=== PATIENT | female | born 1965 | race Caucasian/White ===

== ENCOUNTER → 2017-10-03 | Outpatient (CLI) | payer BC ==
--- NOTE | 2017-10-07 09:54 | MM ---
Reason for exam: screening (asymptomatic). Last mammogram was performed 8 years and 3 months ago. History: Patient is nulliparous. Physical Findings: A clinical breast exam by your physician is recommended on an annual basis and results should be correlated with mammographic findings. MG Screening Mammo w CAD Bilateral CC and MLO view(s) were taken. Prior study comparison: July 08, 2009, bilateral digital screening mammogram. April 23, 2008, bilateral digital screening mammogram. There are scattered fibroglandular densities. There is no discrete abnormality. No significant changes when compared with prior studies. ASSESSMENT: Negative, BI-RAD 1 RECOMMENDATION: Routine screening mammogram of both breasts in 1 year.
== END | disposition home or self-care (01) ==
LOC: RADMAMWWP 16:52
PROVIDERS: ATTEND Family Medicine
DX: Z12.31 Encounter for screening mammogram for malignant neoplasm of breast (principal)
CPT/HCPCS: 77067

== ENCOUNTER 2018-03-13 06:19 | Day surgery (SDC) | payer BC ==
[2018-03-11 12:38] VITALS: BMI 36.3
--- NOTE | 2018-03-12 18:53 | P.HPOB ---
History of Present Illness H&P Date: 03/12/18 Chief Complaint: Endometrial thickening, postmenopausal bleeding This is a 53-year-old female 0 who presents for dilation and curettage with hysteroscopy secondary to endometrial thickening and postmenopausal bleeding. She had her IUD removed after about 11 years in October 2017. She had her IUD removed in the beginning of October. She had a previous ultrasound prior to removal in September 2017 that showed endometrial thickening. She had a repeat ultrasound in February 2018 that showed of thickness of 9 mm. Previous thickness was 1.7 cm and the IUD was in place. She did bleed for about a week in October. Previous period was over a year prior to removal of the IUD. Ultrasound showed uterus measuring 5.1 x 3.2 x 3.9 cm. Right ovary was not visualized and left ovary appeared normal. Obstetrical history: G0. Gynecologic history: History of chlamydia treated years ago. Social history: She is on disability. She is . Review of Systems Constitutional: Denies chills, Denies fever Eyes: denies blurred vision, denies pain Ears, nose, mouth and throat: Denies headache, Denies sore throat Cardiovascular: Denies chest pain, Denies shortness of breath Respiratory: Denies cough Gastrointestinal: Denies abdominal pain, Denies diarrhea, Denies nausea, Denies vomiting Genitourinary: Reports abnormal vaginal bleeding Menstruation: Reports postmenopausal Musculoskeletal: Denies myalgias Integumentary: Denies pruritus, Denies rash Neurological: Denies numbness, Denies weakness Psychiatric: Denies anxiety, Denies depression Past Medical History Past Medical History: CVA/TIA, Hyperlipidemia, Memory Impairment, Thyroid Disorder Additional Past Medical History / Comment(s): 03/29 CVA, TIA 07/26, short term memory problems, worse some days more than others, chronic low back pain. History of Any Multi-Drug Resistant Organisms: None Reported Past Surgical History: No Surgical Hx Reported Past Anesthesia/Blood Transfusion Reactions: Unable to Obtain Additional Past Anesthesia/Blood Transfusion Reaction / Comment(s): Pt has never had general or spinal anesthesia. Past Psychological History: No Psychological Hx Reported Smoking Status: Current every day smoker Past Alcohol Use History: Rare Additional Past Alcohol Use History / Comment(s): Started smoking at age 12, 1 ppd. Past Drug Use History: None Reported - Past Family History Father Additional Family Medical History / Comment(s): Father of alcoholism at age 56 or 57yrs. Sister(s) Family Medical History: CVA/TIA Mother Family Medical History: Cancer Additional Family Medical History / Comment(s): Mother had lung cancer and of complications of lung cancer at age 53 yrs. Medications and Allergies Home Medications Medication Instructions Recorded Confirmed Type Aspirin 325 mg PO DAILY 03/11/18 03/11/18 History Atorvastatin [Lipitor] 40 mg PO QAM 03/11/18 03/11/18 History Levothyroxine Sodium [Synthroid] 100 mcg PO QAM 03/11/18 03/11/18 History Ramipril 2.5 mg PO QAM 03/11/18 03/11/18 History Allergies Allergy/AdvReac Type Severity Reaction Status Date / Time No Known Allergies Allergy Verified 03/11/18 12:15 Exam Osteopathic Statement: *. No significant issues noted on an osteopathic structural exam other than those noted in the History and Physical/Consult. HEENT: Within normal limits Heart: Regular rate and rhythm Lungs: Clear to auscultation bilaterally Abdomen: Soft, nontender Pelvic exam: Uterus is small, anteverted, nontender, with no adnexal masses or tenderness palpated. Extremities: Negative Homans Assessment and Plan (1) Postmenopausal bleeding Status: Acute Code(s): N95.0 - POSTMENOPAUSAL BLEEDING SNOMED Code(s): 74855974 (2) Endometrial thickening on ultrasound Status: Acute Code(s): R93.89 - ABNORMAL FINDINGS ON DX IMAGING OF OTH BODY STRUCTURES SNOMED Code(s): 572185244 Plan: Proceed with dilation and curettage with hysteroscopy. Medical clearance has been obtained from Dr. Iveth Melgar on 03/03/2018. I have discussed the risks, benefits, and alternative therapies for the above- mentioned procedure and for both sedation/anesthesia as well as necessary blood products administration, if indicated, as they pertain to this patient. The patient has indicated her understanding and acceptance of the risks and procedures discussed.
[~2018-03-13 06:19] MED LIST: Pre Op ABX Message 1 EACH MISC MISCELLANE ONE
[2018-03-13] MEDS ORDERED: ONDANSETRON 4 MG/2 ML VIAL IVP ONE (06:31)
[2018-03-13] MEDS ORDERED: DEXAMETHASONE SOD PHOSPHATE 10 MG/ML 1 ML VIAL IV ONE (06:31)
[2018-03-13] MEDS ORDERED: LIDOCAINE 1% 20 ML VIAL (10MG/ML) FOR IV START INTRADERMA PRN (06:31)
[2018-03-13] MEDS ORDERED: LACTATED RINGERS 1,000 ML IV SCH (06:45)
[2018-03-13] MEDS ORDERED: LIDOCAINE 1% 20 ML VIAL (10MG/ML) FOR IV START INTRADERMA ONE (07:12)
[2018-03-13] MEDS ORDERED: PROPOFOL 10 MG/ML 20 ML VIAL IV ONE (07:28)
[2018-03-13] MEDS ORDERED: GLYCOPYRROLATE 0.2 MG/ML 2 ML VIAL ONE (07:28)
[2018-03-13] MEDS ORDERED: LIDOCAINE 1% INJ 10MG/ML (20 ML MDV) ONE (07:28)
[2018-03-13] MEDS ORDERED: fentaNYL (PF) 50 MCG/ML 2 ML AMP ONE (07:28)
[2018-03-13] MEDS ORDERED: MIDAZOLAM 2 MG/2 ML VIAL ONE (07:28)
--- NOTE | 2018-03-13 07:56 | P.OP ---
Date of Procedure: 03/13/18 Preoperative Diagnosis: Postmenopausal bleeding Endometrial thickening Postoperative Diagnosis: Same Procedure(s) Performed: Dilation and curettage with hysteroscopy Anesthesia: other (Mask general) Surgeon: Cara Guerrero Estimated Blood Loss (ml): 5 Pathology: other (Endometrial curettings) Condition: stable Disposition: same day Indications for Procedure: This is a 53-year-old female 0 who presents for dilation and curettage with hysteroscopy secondary to endometrial thickening and postmenopausal bleeding. She had her IUD removed after about 11 years in October 2017. She had her IUD removed in the beginning of October. She had a previous ultrasound prior to removal in September 2017 that showed endometrial thickening. She had a repeat ultrasound in February 2018 that showed of thickness of 9 mm. Previous thickness was 1.7 cm and the IUD was in place. She did bleed for about a week in October. Previous period was over a year prior to removal of the IUD. Ultrasound showed uterus measuring 5.1 x 3.2 x 3.9 cm. Right ovary was not visualized and left ovary appeared normal. Operative Findings: Uterus is mid to retroverted and sounded to 6 m. No adnexal masses are palpated. Upon hysteroscopy, a relatively atrophic pattern was noted however there was a possible submucosal fibroid in the lower uterine segment on the right side. Both tubal ostia are visualized. Minimal endometrial curettings are obtained. Description of Procedure: The patient is taken to the operating room where she is placed in the dorsal lithotomy position. She is prepped and draped in the normal sterile fashion. Bladder is drained with a catheter. Examination is performed under anesthesia. Uterus is found to be mid to retroverted position. Next a weighted speculum was placed in the patient's vagina and a right angle retractor was used to visualize the cervix. The anterior lip of the cervix is grasped with a single- tooth tenaculum. Cervix is gently dilated with Dillon dilator and then sounded to 6 cm. Cervix is then dilated further with Dillon dilators until a hysteroscope could be passed. Hysteroscopy was performed using normal saline. The above noted findings are made and pictures are taken. Next the hysteroscope was withdrawn and the cervix is gently dilated further. A polyp forceps was introduced with minimal polypoid type tissue obtained. Next the medium-size sharp curet was introduced and sharp curettage was performed with minimal further tissue obtained. Next the single-tooth tenaculum was removed. No bleeding was noted. All other incisions are removed from the vagina. All sponge and needle counts are correct. Patient is then taken to recovery room in stable condition.
[2018-03-13 08:13] VITALS: TEMP 97.5
[2018-03-13 08:33] VITALS: RESP 16
[2018-03-13 09:22] VITALS: BP 133/83; PULSE 54
== END 2018-03-13 09:58 | disposition home or self-care (01) ==
LOC: OR 06:19 → EDSTATUS 07:30 → OR 09:58
PROVIDERS: ATTEND Obstetrics & Gynecology
DX: N84.0 Polyp of corpus uteri (principal); N85.4 Malposition of uterus; R93.89 Abnormal findings on diagnostic imaging of other specified body structures; E78.5 Hyperlipidemia, unspecified; R41.3 Other amnesia; E07.9 Disorder of thyroid, unspecified; M54.5 Low back pain; G89.29 Other chronic pain; I10 Essential (primary) hypertension; F17.210 Nicotine dependence, cigarettes, uncomplicated; Z79.82 Long term (current) use of aspirin; Z79.890 Hormone replacement therapy; Z79.899 Other long term (current) drug therapy; Z86.73 Personal history of transient ischemic attack (TIA), and cerebral infarction without residual deficits
CPT/HCPCS: 81025; 88305; 58558; J2250; J1100; J2405; J2001; J3010; J2704

== ENCOUNTER → 2023-06-13 | Outpatient (CLI) | payer BC ==
[2023-06-13 19:00] LABS: Basophils # (A) 0.08 X 10*3/uL (0.00-0.10); Basophils % (A) 0.7 %; Eosinophils # (A) 0.18 X 10*3/uL (0.04-0.35); Eosinophils % (A) 1.6 %; HGB 14.6 g/dL (12.0-15.0); Lymphocytes # (A) 3.53 X 10*3/uL (0.90-5.00); Lymphocytes % (A) 31.5 %; MCH 30.2 pg (27.0-32.0); MCHC 31.7 g/dL (32.0-37.0); MCV 95.2 FL (80.0-97.0); Mean Platelet Volume 9.9 FL (9.5-12.2); Monocytes # (A) 0.68 X 10*3/uL (0.20-1.00); Monocytes % (A) 6.1 %; NRBC Per 100 WBC 0 X 10*3/uL (0.00-0.01); Neutrophils # (A) 6.69 X 10*3/uL (1.80-7.70); Neutrophils % (A) 59.7 %; Platelet Count 379 X 10*3/uL (140-440); RBC 4.83 X 10*6/uL (4.10-5.20); RDW 13.7 % (11.5-14.5)
[2023-06-13 19:08] LABS: Blood Urea Nitrogen 12.7 mg/dL (9.0-27.0); Chloride 106 mmol/L (96-109); Glucose 91 mg/dL (70-110); Potassium 4.3 mmol/L (3.5-5.5); Sodium 143 mmol/L (135-145)
[2023-06-13 19:09] LABS: Calcium 9.5 mg/dL (8.7-10.3); Carbon Dioxide 24.2 mmol/L (21.6-31.8)
[2023-06-13 19:34] LABS: Appearance,Urine Turbid (Clear); Bilirubin,Urine Negative (Negative); Blood,Urine Negative (Negative); Color,Urine Yellow (Yellow); Ketones,Urine Negative (Negative); Nitrite,Urine Negative (Negative); PH, Urine 5.5; Specific Gravity,Urine 1.027 (1.001-1.030)
[2023-06-13 19:43] LABS: Bacteria,Urine 3+ (None Seen)
== END | disposition home or self-care (01) ==
LOC: LABPRL 15:08
PROVIDERS: ATTEND Orthopaedic Surgery Orthopaedic Surgery of the Spine
DX: Z01.812 Encounter for preprocedural laboratory examination (principal)
CPT/HCPCS: 80048; 81001; 85025; 86850; 86900; 86901; 87070

== ENCOUNTER 2023-06-19 09:36 | Observation (INO) | payer BC ==
[~2023-06-19 09:36] MED LIST changes: +HYDROmorphone 0.5 MG/0.5 ML SYRINGE IVP PRN; -Pre Op ABX Message 1 EACH MISC MISCELLANE ONE
[2023-06-19] MEDS: LACTATED RINGERS 1,000 ML IV ONE ×3 (09:50→13:33)
[2023-06-19] MEDS: ONDANSETRON 4 MG/2 ML VIAL IVP ONE (10:41)
[2023-06-19] MEDS ORDERED: MIDAZOLAM 2 MG/2 ML VIAL ONE (11:14)
[2023-06-19] MEDS ORDERED: NEOSTIGMINE 1 MG/ML 10 ML VIAL ONE (11:14)
[2023-06-19] MEDS ORDERED: PROPOFOL 10 MG/ML 20 ML VIAL IV ONE (11:14)
[2023-06-19] MEDS ORDERED: HYDROmorphone (PF) 1 MG/ML ONE (11:14)
[2023-06-19] MEDS ORDERED: TRANEXAMIC 1,000 MG/100ML-NACL PREMIX BAG ONE (11:14)
[2023-06-19] MEDS ORDERED: SUCCINYLCHOLINE CHLORIDE 200 MG/10 ML VIAL IV ONE (11:14)
[2023-06-19] MEDS ORDERED: ePHEDrine 50 MG/ML 1 ML VIAL ONE (11:14)
[2023-06-19] MEDS ORDERED: LIDOCAINE 1% INJ 10MG/ML (20 ML MDV) ONE (11:14)
[2023-06-19] MEDS ORDERED: fentaNYL (PF) 50 MCG/ML 2 ML AMP ONE (11:14)
[2023-06-19] MEDS ORDERED: PHENYLEPHRINE 10 MG/ML VIAL ONE (11:14)
[2023-06-19] MEDS ORDERED: FUROSEMIDE 10 MG/ML 2 ML VIAL ONE (11:14)
[2023-06-19] MEDS ORDERED: PHENYLEPHRINE-0.9% NACL SYG 1,000 MCG/10 ML SYRINGE ONE (11:14)
[2023-06-19] MEDS ORDERED: KETAMINE HCL IN 0.9 % NACL 50 MG/5 ML SYRINGE ONE (11:14)
[2023-06-19] MEDS ORDERED: GLYCOPYRROLATE 0.2 MG/ML 2 ML VIAL ONE (11:14)
[2023-06-19] MEDS ORDERED: ROCURONIUM 10 MG/ML (5 ML VIAL) IV ONE (11:14)
[2023-06-19] MEDS: ceFAZolin 1,000 MG in SODIUM CHLORIDE 0.9% IRRIGATIO 1,000 ML IRRIGATION PRN ×2 (11:19→13:15)
[2023-06-19] MEDS: THROMBIN (BOVINE) 5,000 UNIT VIAL TOPICAL ONE (12:02)
[2023-06-19] MEDS: LIDOCAINE 2%-EPI 1:100,000 20 ML VIAL SQ ONE ×2 (12:02→12:08)
[2023-06-19] MEDS: BUPIVACAINE (PF) 0.5% 30 ML VIAL SQ ONE ×2 (12:08)
[2023-06-19] MEDS ORDERED: TRANEXAMIC 1,000 MG/100ML-NACL 1,000 MG in SALINE 1 100ML.BAG IVPB PRN (12:18)
--- NOTE | 2023-06-19 16:06 | FL ---
EXAMINATION TYPE: FL guidance operating room, XR lumbar spine 2 or 3V Intraoperative/procedural fluor oscopic services were provided. Total fluoroscopy time is 17 seconds with a total of 5 submitted imag es to PACS. Please see the operative/procedural note for further details. DAP: 52.217 Gycm2
[2023-06-19] MEDS ORDERED: ONDANSETRON 4 MG/2 ML VIAL IVP PRN (16:08)
[2023-06-19] MEDS ORDERED: SENNOSIDES-DOCUSATE SODIUM 1 EACH TAB PO PRN (16:08)
[2023-06-19] MEDS ORDERED: HYDROmorphone 1 MG/ML 1 ML SYRINGE IVP PRN (16:08)
[2023-06-19] MEDS ORDERED: BENZOCAINE/MENTHOL LOZENG 1 EACH LOZENGE MUCOUS MEM PRN (16:08)
[2023-06-19] MEDS ORDERED: HYDROmorphone 0.5 MG/0.5 ML SYRINGE IVP PRN (16:08)
--- NOTE | 2023-06-19 16:17 | P.OP ---
Date of Procedure: 06/19/23 Preoperative Diagnosis: Spinal stenosis L3-4 L4-5 L5-S1, lower extremity radiculopathy,, degenerative disc disease, herniated nucleus pulposus L3-4 L4-5 L5-S1, low back pain, facet arthrosis Postoperative Diagnosis: Same Anesthesia: GETA Pathology: none sent Condition: stable Disposition: PACU Description of Procedure: DESCRIPTION OF PROCEDURE(S): BRIEF OPERATIVE NOTE Preoperative Diagnosis: Spinal stenosis L3-4 L4-5 L5-S1, lower extremity radiculopathy,, degenerative disc disease, herniated nucleus pulposus L3-4 L4-5 L5-S1, low back pain, facet arthrosis, degenerative scoliosis Postoperative Diagnosis: Same Procedure: Laminectomy and decompression L3-4 L4-5 L5-S1 bilaterally with foraminotomy Computer CT navigation aided Minimally invasive Posterior lateral decompression and facet fusion L3-4 L4-5 L5-S1 Minimally invasive Transforaminal lumbar interbody fusion for a 360 fusion L3-4 L4-5 L5-S1 Discectomy for decompression L3-4 L4-5 L5-S1 beyond that preparation for fusion Placement of interbody graft L3-4 L4-5 L5-S1 Use of computer navigation for fusion Local autogenous bone grafting Aspiration of bone marrow from the vertebral body pedicle of L3 on the right Use of bone graft extenders Surgeon: Dr. Crocker [facility] Worker: Javan KNAPP who is present throughout the entire the case persistence during positioning, dissection, exposure, visualization, and all crucial elements of the case as well as closure. Anesthesia: General anesthesia Estimated blood loss: Approximately 500 mL, with 250 given back through Cell Saver Complications: None apparent Components implanted: K2M Aleksandr minimally invasive [place] pedicle screw system withscrews measuring 6.5 mm in diameter to rods one [place] interbody cage and 2 peek interbody cages with 10 mL of osteo amp bio4 bone graft substitute and 30 mL of the BX bone fibers to supplement the local autogenous bone graft and bone marrow aspirate Disposition: To recovery room in good stable condition. OPERATIVE INDICATIONS The patient has had severe issues at their lower extremity in her lower back over the past several years with significant worsening over the past several months. Over the past few months the patient had pain at their back and their lower extremities. The patient is having severe radicular symptoms at their lower extremity with weakness. The patient is having significant pain in their back. They are unable to obtain any comfort. We did aggressive conservative treatment with medications therapy and interventional pain management however thery were not having any relief. The patient and degenerative scoliosis and evidence of significant stenosis at multiple levels with disc herniation particularly at L3-4 L4-5 L5-S1. These correlated well with her low back and lower extremity symptoms. The patient has been through conservative treatment. We discussed various treatment options including surgery, and the patient wishes to proceed with surgery We discussed the risk, patient's alternatives and benefits of surgery including but not limited to, risk of bleeding risk of infection, risk of need for further surgery, risk of decreased, loss of motion, muscle function, malunion nonunion, hardware failure, nerve damage, paralysis, heart attack, blindness and . They understood issues with the current pandemic and the possibility of exposure. OPERATIVE SUMMARY After discussing all the risks, patient alternatives and benefits at length, the patient elected to proceed with surgical intervention, signed informed consent, and presented for their procedure. The patient was seen and examined in the ct eoperative holding area and the surgical site was marked. The patient was given antibiotics and brought to the operating room. The patient was sedated and intubated by anesthesia in standard fashion. The patient was positioned on to the operating room table in a prone position on the appropriate frame which was well-padded and well molded. We were careful to pad any bony prominences and pressure points. We were careful to maintain the patient's cervical spine and good neutral alignment and position throughout. The patient was prepped and draped in a normal standard fashion. An appropriate timeout and keystone protocol performed. We were able to proceed with the surgery. The local wound area was infiltrated with local anesthetic. Over the right iliac crest I was able to make small stab incisions and establish a guidepin screw fixation to the iliac crest 2. I was able place the computer referencing device over the guidepins to establish an appropriate reference point for the Ziem CT navigation. We then were able to place patient in an appropriate drape and do a navigation spin for visualization and 3-D reconstruction of the lumbar spine. I was able utilize C-arm guidance and navigation to establish appropriate position over the pedicles bilaterally at the appropriate levels from L3-S1. With the appropriate levels confirmed was able to make small incisions over the appropriate pedicle sites bilaterally. Utilizing the computer navigation device I was able to establish bony landmarks at the right iliac crest for a bony reference point for the navigation device. I was able to establish a Jamshidi needle over the lateral aspect of the pedicle and advanced the trocar into the pedicle being careful not to breech superiorly inferiorly medially or laterally using computer navigation device. Position was confirmed regularly with AP and lateral images on C-arm and with the computer navigation device at the appropriate levels bilaterally. I was able to establi sh the trocar into the pedicle appropriately into the posterior aspect of the vertebral body bilaterally at the appropriate levels. This was done at each of the pedicle positions and each of the vertebrae. At the superior vertebrae I was able to take approximately 15 mL of bone aspiration for use later in the case to supplement the allograft and autograft bone. I was able place the guidewire into the trocar and into the vertebral body appropriately under C-arm guidance. Dissection was taken down over the wire to the appropriate starting position for the screw placed. The appropriate length screw was chosen, threaded over the guidewire and screwed appropriately into the pedicle and vertebral body under C-arm guidance in excellent alignment and position with good bony purchase. This is done at each of the screw sites at the appropriate levels at L3-L4-L5 and S1 bilaterally. With the screws intact I extended the incision to connect the screw hole sites on the most symptomatic side on the left. I dissected down to establish access over the pars and lamina to the base of the spinous process. I was able to expose the facet joint. The capsule the facet was taken down and showed some facet arthrosis at the joint. I was able to use a combination of curettes and Kerrison rongeurs and a high-speed drill to take down the facet joint and do a facetectomy. I was able get excellent foraminal decompression and central decompression with undermining across midline to perform a laminectomy centrally and contralaterally. I was able get good central decompression bilaterally at e ach level. The ligamentum flavum was taken down to further decompress centrally and at bilateral neural foramen. I was able to expose the disc space and visualize the traversing nerve root. Note was made of distinct disc herniation that was abutting the traversing nerve root at the level causing further compression of the nerve root at each level with particular herniation and extruded fragment at L3-4 and L5-S1.. I was able to establish a annulotomy at the appropriate level protecting soft tissue and neural structures. Note was made of some disc desiccation at the disc. I performed a complete discectomy with accommodation of curettes and rasps and scrapers. I was able get good endplate preparation at the disc space. I sized for the appropriate size interbody spacer protecting the soft tissue and neural structures. The wound was copiously irrigated and suctioned dry. There is no evidence of any dural tear or leak. I was able to pack the disc space with local autogenous bone graft as well as a small amount of bone graft which was also placed into the interbody cage itself. Protecting the soft tissue structures and neural structures I was able place the interbody cage in good alignment and good position with good fit and fill at the interbody space. Position was confirmed with C-arm guidance. Good hemostasis maintained. There is no evidence of any dural tear or leak. The wound was irrigated and suctioned dry. With the hardware intact, from L3-S1 intraoperative C-arm imaging was again taken which showed good alignment and position of the hardware at the appropr iate levels. We were then able to measure, contour into good lordosis and place the rods and appropriate hardware bilaterally. I was able to place capcrews, tighten them down, and torque them with the torque screwdriver appropriately. With this intact I was able to place the local autogenous bone graft with additional bone graft enhancer as necessary into the posterior lateral gutters over the decorticated transverse processes and facet joints on the contralateral side. The remainder of the bone graft was placed over the facet joint on the contralateral side after taking down the facet joint capsule. With the bone graft intact, a stable construct, and good decompression at the appropriate levels, we were able to proceed with closure. Good hemostasis was maintained. There is no evidence of dural tear or leak. The fascia was closed for a watertight closure. he subcuticular tissue was closed with absorbable suture. The wound was cleaned and dried and dressed with the appropriate dressing. The drapes were broken down. The patient was gently rolled back onto their hospital bed being careful to maintain their cervical spine and good neutral alignment and position. They were woken up by anesthesia, extubated, and brought to the recovery room in good stable condition. The patient will be admitted to the hospital for appropriate postoperative care, medical management and monitoring. We will continue to follow them closely about the postoperative course.
[2023-06-19] MEDS: DEXAMETHASONE SOD PHOSPHATE 4 MG/ML 1 ML VIAL IV ONE (17:53)
[2023-06-19] MEDS: LACTATED RINGERS 1,000 ML IV SCH (17:53)
[2023-06-19] MEDS: ceFAZolin 3 GM in SODIUM CHLORIDE 0.9% 100 ML IVPB SCH (18:08)
[2023-06-19] MEDS: SODIUM CHLORIDE 0.9% 1,000 ML IV SCH (18:13)
[2023-06-19] MEDS: CYCLOBENZAPRINE 10 MG TAB PO PRN (20:07)
[2023-06-19] MEDS: NYSTATIN 100,000 UNIT/GM OINT 30 GM TUBE TOPICAL SCH (22:45)
[2023-06-19] MEDS: HYDROcodone/APAP 5-325MG 1 EACH TAB PO PRN (22:48)
[2023-06-20] MEDS: SENNOSIDES-DOCUSATE SODIUM 1 EACH TAB PO SCH (07:51)
--- NOTE | 2023-06-20 08:44 | P.PN ---
Progress Note - Text Progress Note Date: 06/20/23 Postoperative day #1 Patient is seen and examined today at bedside. The patient has some pain around the surgical site as expected. Pain is being controlled with medication. She denies any nausea or vomiting. She has not had anything to eat yet this morning. The Smalls is intact and she has not yet been out of bed Physical Exam Afebrile with stable vital signs Abdomen is soft nontender. Chest has good excursion deep and space expiration The incision site is clean dry and intact. No erythema there is no purulence. Extremities have not had neurologic change from prior to surgery. She has sustained dorsiflexion plantarflexion EHL intact to the bilateral lower extremities she is able to lift her legs up off the bed Calves and thighs were soft nontender without evidence of DVT. Assessment/Plan Postoperative day #1 status post minimally invasive decompression fusion L3-4 L4-5 L5-S1 for her spinal stenosis with degenerative disc disease and degenerative scoliosis and lower extremity radiculopathy Patient is progressing as expected from the surgery. She feels it is a bit more painful than she expected but medication is managing adequately. Therapy is at bedside now and they are going to work to get her up out of bed this morning. We will continue to increase the patient's mobilization with therapy. We will continue pain control with oral or IV medications. We'll continue to follow patient closely.
[2023-06-20 08:46] LABS: Basophils # (A) 0.04 X 10*3/uL (0.00-0.10); Basophils % (A) 0.3 %; Eosinophils # (A) 0.05 X 10*3/uL (0.04-0.35); Eosinophils % (A) 0.4 %; HCT 37.3 % (37.2-46.3); HGB 11.8 g/dL (12.0-15.0); Lymphocytes # (A) 2.03 X 10*3/uL (0.90-5.00); Lymphocytes % (A) 14.8 %; MCH 29.6 pg (27.0-32.0); MCHC 31.6 g/dL (32.0-37.0); MCV 93.7 FL (80.0-97.0); Mean Platelet Volume 9.6 FL (9.5-12.2); Monocytes # (A) 0.83 X 10*3/uL (0.20-1.00); Monocytes % (A) 6.1 %; NRBC Per 100 WBC 0 X 10*3/uL (0.00-0.01); Neutrophils # (A) 10.71 X 10*3/uL (1.80-7.70); Neutrophils % (A) 78.1 %; Platelet Count 287 X 10*3/uL (140-440); RBC 3.98 X 10*6/uL (4.10-5.20)
[2023-06-20 09:03] LABS: Blood Urea Nitrogen 11.9 mg/dL (9.0-27.0); Calcium 8.3 mg/dL (8.7-10.3); Carbon Dioxide 23.3 mmol/L (21.6-31.8); Chloride 108 mmol/L (96-109); Glucose 123 mg/dL (70-110); Potassium 4.5 mmol/L (3.5-5.5); Sodium 140 mmol/L (135-145)
[2023-06-20] MEDS: LEVOTHYROXINE 100 MCG TAB PO SCH (16:50)
[2023-06-20] MEDS: PANTOPRAZOLE 40 MG/10 ML VIAL IVP SCH (16:51)
--- NOTE | 2023-06-20 18:39 | P.CONS ---
History of Present Illness - History of Present Illness This is a 58-year-old female with past medical history significant for CVA, T IA, memory impairment, hyperlipidemia, hypertension, hypothyroidism, ongoing nicotine dependence ,chronic low back pain, spinal stenosis L3-4, L4-5, L5-S1 with lower extremity radiculopathy, degenerative disc disease, herniated nucleus pulposus L3-4, L4-5, L5-S1, status post decompression fusion.tolerated procedure well. Denies history of diabetes mellitus. sitting up in chair, positive pain. Nausea and vomiting yesterday, subsided. Passing flatus. Denies chest pain, palpitations or shortness of breath. Smalls present. Denies chest pain, palpitations or shortness of breath. Maintaining O2 sats in the mid 90s on 2 L nasal cannula. Afebrile, WBC 13.7, hemoglobin 11.8, platelets 287. Bicarb 23.3, BUN 11.9, creatinine 1. Electrolytes within normal limits. Maintained on IV fluid hydration, blood pressures soft. Review of Systems ROS Statement: Those systems with pertinent positive or pertinent negative responses have been documented in the HPI. ROS Other: All systems not noted in ROS Statement are negative. Past Medical History Past Medical History: CVA/TIA, Hyperlipidemia, Memory Impairment, Thyroid Disorder Additional Past Medical History / Comment(s): 03/29 CVA, TIA 07/26, short term memory problems, worse some days more than others, chronic low back pain. History of Any Multi-Drug Resistant Organisms: None Reported Past Surgical History: No Surgical Hx Reported Past Anesthesia/Blood Transfusion Reactions: Unable to Obtain Additional Past Anesthesia/Blood Transfusion Reaction / Comm: Pt has never had general or spinal anesthesia. Past Psychological History: No Psychological Hx Reported Additional Psychological History / Comment(s): Pt resides with her spouse. She is independent. She uses no assistive device. She drives. Smoking Status: Current every day smoker Past Alcohol Use History: Rare Additional Past Alcohol Use History / Comment(s): Started smoking at age 12, 1 ppd. Past Drug Use History: None Reported - Past Family History Father Additional Family Medical History / Comment(s): Father of alcoholism at age 56 or 57yrs. Sister(s) Family Medical History: CVA/TIA Mother Family Medical History: Cancer Additional Family Medical History / Comment(s): Mother had lung cancer and of complications of lung cancer at age 53 yrs. Medications and Allergies Home Medications Medication Instructions Recorded Confirmed Type Aspirin 325 mg PO DAILY 03/11/18 06/19/23 History Atorvastatin [Lipitor] 40 mg PO QAM 03/11/18 06/19/23 History Levothyroxine Sodium [Synthroid] 100 mcg PO QAM 03/11/18 06/19/23 History ramipriL [Ramipril] 2.5 mg PO QAM 03/11/18 06/19/23 History Fluticasone/Umeclidin/Vilanter 1 dose INHALATION DIRECTED 06/14/23 06/19/23 History [Trelegy Ellipta 100-62.5-25] Ibuprofen [Motrin] 800 mg PO Q8H 06/14/23 06/19/23 History Allergies Allergy/AdvReac Type Severity Reaction Status Date / Time No Known Allergies Allergy Verified 06/19/23 10:14 Physical Exam Vitals: Vital Signs Temp Pulse Pulse Resp BP Pulse Ox 06/20/23 13:29 99.5 F 88 18 103/71 91 L 06/20/23 07:24 98.4 F 96 18 106/71 95 06/20/23 02:00 85 17 109/76 97 06/19/23 19:59 97.6 F 86 15 122/79 94 L 06/19/23 18:51 81 84 19 06/19/23 17:40 97.2 F L 84 19 118/81 91 L 06/19/23 17:19 81 16 126/71 92 L 06/19/23 17:04 99 16 132/76 94 L 06/19/23 16:49 80 16 125/80 96 06/19/23 16:34 80 16 132/80 94 L 06/19/23 16:19 97.2 F L 86 14 130/74 97 Intake and Output 06/20/23 06/20/23 06/20/23 06:59 14:59 22:59 Output Total 500 200 Balance -500 -200 Output: Urine 500 200 Uretheral (Smalls) 200 Other: Voiding Method Indwelling Catheter # Voids 3 Gen: well developed, female in NAD HEENT: NC/AT, mmm Neck: supple, no JVD or thyromegaly CV: regular rhythm, no murmur Lungs: normal effort, clear throughout Abd: soft, nontender, non distended Skin: warm and dry Results CBC & Chem 7: 06/20/23 03:24 06/20/23 03:24 Labs: Abnormal Lab Results - Last 24 Hours (Table) 06/20/23 06/20/23 Range/Units 03:24 03:24 WBC 13.70 H (4.50-10.00) X 10*3/uL RBC 3.98 L (4.10-5.20) X 10*6/uL Hgb 11.8 L (12.0-15.0) g/dL MCHC 31.6 L (32.0-37.0) g/dL Neutrophils # 10.71 H (1.80-7.70) X 10*3/uL BUN/Creatinine Ratio 11.90 L (12.00-20.00) Ratio Glucose 123 H (70-110) mg/dL Calcium 8.3 L (8.7-10.3) mg/dL Assessment and Plan Assessment: Chronic low back pain, spinal stenosis L3-4, L4-5, L5-S1 with lower extremity radiculopathy, degenerative disc disease, herniated nucleus pulposus L3-4, L4-5, L5-S1, status post decompression fusion. History of CVA-right MCA, TIA with memory impairment Hyperlipidemia Hypothyroidism Nicotine dependence Morbid obesity, BMI 41 Plan: Continue on current medication regimen ,monitoring and symptomatic treatment. Aggressive pulmonary toileting with incentive spirometer reinforced. Smoking sensation reinforced. PPI ordered for GI prophylaxis. Pain management and DVT prophylaxis as per orthopedic spine. PT/OT. Home meds have been reviewed and resumed accordingly. Hemoglobin A1c ordered. Thank you for the consult. The impression and plan of care has been dictated as directed. : I performed a history and examination of this patient, discussed the same with the dictator. I agree with the dictator's note ,documented as a scribe. Any additional findings or plans will be noted.
[2023-06-20] MEDS: SYMBICORT 80-4.5 MCG INHALER INHALATION SCH (21:25)
[2023-06-20] MEDS: IPRATROPIUM 0.5 MG/2.5 ML NEBU INHALATION SCH (21:26)
[2023-06-21 10:42] LABS: Basophils # (A) 0.05 X 10*3/uL (0.00-0.10); Basophils % (A) 0.3 %; Eosinophils # (A) 0.07 X 10*3/uL (0.04-0.35); Eosinophils % (A) 0.4 %; HCT 35.8 % (37.2-46.3); HGB 11.8 g/dL (12.0-15.0); Lymphocytes # (A) 1.88 X 10*3/uL (0.90-5.00); Lymphocytes % (A) 11.8 %; MCH 31.5 pg (27.0-32.0); MCV 95.5 FL (80.0-97.0); Mean Platelet Volume 10.3 FL (9.5-12.2); Monocytes # (A) 1.34 X 10*3/uL (0.20-1.00); Monocytes % (A) 8.4 %; NRBC Per 100 WBC 0 X 10*3/uL (0.00-0.01); Neutrophils # (A) 12.46 X 10*3/uL (1.80-7.70); Neutrophils % (A) 78.5 %; Platelet Count 260 X 10*3/uL (140-440); RBC 3.75 X 10*6/uL (4.10-5.20); RDW 14.2 % (11.5-14.5); WBC 15.89 X 10*3/uL (4.50-10.00)
[2023-06-21 11:03] LABS: Calcium 8.2 mg/dL (8.7-10.3); Chloride 104 mmol/L (96-109); Glucose 112 mg/dL (70-110); Potassium 3.9 mmol/L (3.5-5.5); Sodium 138 mmol/L (135-145)
[2023-06-21] MEDS ORDERED: DEXTROSE 50% SYRINGE 50 ML IVP PRN ×2 (11:06)
--- NOTE | 2023-06-21 11:14 | P.PN ---
Subjective Progress Note Date: 06/21/23 Principal diagnosis: Lumbar stenosis. Status post minimally invasive decompression fusion L3-4 L4-5 L5-S1 for her spinal stenosis with degenerative disc disease and degenerative scoliosis and lower extremity radiculopathy. This is a 58-year-old female who is postop day #2 Status post minimally invasive decompression fusion L3-4 L4-5 L5-S1 for her spinal stenosis with degenerative disc disease and degenerative scoliosis and lower extremity radiculopathy. She is moving a bit slow. She has been up to the bathroom with 2 person assist but has significant pain in doing so. She has not been up today. She has no complaints of nausea, vomiting or diarrhea. She denies any numbness or tingling to the lower extremities. She is having pain into her legs. She has not yet been up with physical therapy today. Objective - Vital Signs Vital signs: Vital Signs Temp 98.4 F 06/21/23 07:27 Pulse 107 H 06/21/23 07:27 Resp 18 06/21/23 07:27 BP 124/69 06/21/23 07:27 Pulse Ox 92 L 06/21/23 07:27 FiO2 Intake & Output 06/20/23 06/21/23 06/21/23 18:59 06:59 18:59 Output Total 200 Balance -200 Output: Urine 200 Uretheral (Smalls) 200 Other: Voiding Method Indwelling Catheter Toilet # Voids 3 2 - Exam This is a pleasant 58-year-old female in no acute distress. She is alert and oriented x 3. Exam performed with patient lying in bed. She is unable to roll to the side at this time. She has difficulty raising each leg off the bed independently. She does have full foot and ankle motion bilaterally. She can flex at her knees and hips with minimal difficulty. Neurovascular status to the lower extremities is intact. - Labs CBC & Chem 7: 06/21/23 06:18 06/21/23 06:18 Labs: Abnormal Lab Results - Last 24 Hours (Table) 06/20/23 06/21/23 06/21/23 Range/Units 03:32 06:18 06:18 WBC 15.89 H (4.50-10.00) X 10*3/uL RBC 3.75 L (4.10-5.20) X 10*6/uL Hgb 11.8 L (12.0-15.0) g/dL Hct 35.8 L (37.2-46.3) % Immature Gran # 0.09 H (0.00-0.04) X 10*3/uL Neutrophils # 12.46 H (1.80-7.70) X 10*3/uL Monocytes # 1.34 H (0.20-1.00) X 10*3/uL Carbon Dioxide 21.0 L (21.6-31.8) mmol/L Anion Gap 13.00 H (4.00-12.00) mmol/L BUN/Creatinine Ratio 10.00 L (12.00-20.00) Ratio Glucose 112 H (70-110) mg/dL Hemoglobin A1c 6.1 H (<=6.0) % Calcium 8.2 L (8.7-10.3) mg/dL Assessment and Plan Assessment: 1. Lumbar stenosis. 2. Status post minimally invasive decompression fusion L3-4 L4-5 L5-S1 for her spinal stenosis with degenerative disc disease and degenerative scoliosis and lower extremity radiculopathy. Plan: The clinical findings are discussed with the patient. She is encouraged to try to get up with therapy today and at least up in a chair for a while. We will c ontinue care and plan discharge Saturday or Saturday.
--- NOTE | 2023-06-21 11:26 | P.PN ---
Subjective Progress Note Date: 06/21/23 06/20/2023 this is a 58-year-old female with past medical history significant for CVA, TIA, memory impairment, hyperlipidemia, hypertension, hypothyroidism, ongoing nicotine dependence ,chronic low back pain, spinal stenosis L3-4, L4-5, L5-S1 with lower extremity radiculopathy, degenerative disc disease, herniated nucleus pulposus L3-4, L4-5, L5-S1, status post decompression fusion.tolerated procedure well. Denies history of diabetes mellitus. sitting up in chair, positive pain. Nausea and vomiting yesterday, subsided. Passing flatus. Denies chest pain, palpitations or shortness of breath. Smalls present. Denies chest pain, palpitations or shortness of breath. Maintaining O2 sats in the mid 90s on 2 L nasal cannula. Afebrile, WBC 13.7, hemoglobin 11.8, platelets 287. Bicarb 23.3, BUN 11.9, creatinine 1. Electrolytes within normal limits. Maintained on IV fluid hydration, blood pressures soft. 06/21/2023 Up to bathroom with two-person assist-reports positive pain but pain better controlled. Denies lower extremity numbness or tingling. denies chest pain, palpitations or shortness of breath. Denies cough or congestion. Denies chills, occasional sweats during the night. Afebrile, WBC 15.89, mild tachycardia, maintaining O2 sats in the low 90s on room air .on admission blood sugars mildly elevated at 123, hemoglobin A1c reflecting prediabetes with a level of 6.1. Denies nausea vomiting or diarrhea. Passing flatus. Objective - Vital Signs Vital signs: Vital Signs Temp 98.4 F 06/21/23 07:27 Pulse 107 H 06/21/23 07:27 Resp 18 06/21/23 07:27 BP 124/69 06/21/23 07:27 Pulse Ox 92 L 06/21/23 07:27 FiO2 Intake & Output 06/20/23 06/21/23 06/21/23 18:59 06:59 18:59 Output Total 200 Balance -200 Output: Urine 200 Uretheral (Smalls) 200 Other: Voiding Method Indwelling Catheter Toilet # Voids 3 2 - Exam Gen: Alert and oriented x 3, laying in bed ,NAD HEENT: NC/AT, mmm Neck: supple, no JVD or thyromegaly CV: regular rhythm, no murmur Lungs: normal effort, clear throughout Abd: soft, nontender, non distended Skin: warm and dry - Labs CBC & Chem 7: 06/21/23 06:18 06/21/23 06:18 Labs: Abnormal Lab Results - Last 24 Hours (Table) 06/20/23 06/21/23 Range/Units 03:32 06:18 WBC 15.89 H (4.50-10.00) X 10*3/uL RBC 3.75 L (4.10-5.20) X 10*6/uL Hgb 11.8 L (12.0-15.0) g/dL Hct 35.8 L (37.2-46.3) % Immature Gran # 0.09 H (0.00-0.04) X 10*3/uL Neutrophils # 12.46 H (1.80-7.70) X 10*3/uL Monocytes # 1.34 H (0.20-1.00) X 10*3/uL Hemoglobin A1c 6.1 H (<=6.0) % Assessment and Plan Assessment: Lumbar stenosis, spinal stenosis L3-4, L4-5, L5-S1 with lower extremity radiculopathy, degenerative disc disease, herniated nucleus pulposus L3-4, L4-5, L5-S1, status post decompression fusion. Pre-diabetes mellitus, hemoglobin A1c 6.1 Postoperative atelectasis Leukocytosis, reactive History of CVA-right MCA, TIA with memory impairment Hyperlipidemia Hypothyroidism Nicotine dependence, smoking sensation reinforced Morbid obesity, BMI 41 Plan: Continue on current medication regimen ,monitoring and symptomatic treatment. Tight blood sugar control, insulin sliding scale for close monitoring of blood sugars. Pain management. PT/OT pending. maintain aggressive pulmonary toileting with incentive spirometer reinforced. DVT prophylaxis as per orthopedic spine. The impression and plan of care has been dictated as directed. : I performed a history and examination of this patient, discussed the same with the dictator. I agree with the dictator's note ,documented as a scribe. Any additional findings or plans will be noted.
[2023-06-21] MEDS: INSULIN ASPART (NovoLOG) 100 UNIT/ML VIAL SQ SCH (14:35)
[2023-06-21 16:04] LABS: Glucose,Whole Blood 95 mg/dL (70-110)
[2023-06-21 21:35] LABS: Glucose,Whole Blood 96 mg/dL (70-110)
[2023-06-22 06:06] LABS: Glucose,Whole Blood 99 mg/dL (70-110)
[2023-06-22 11:30] LABS: Glucose,Whole Blood 87 mg/dL (70-110)
--- NOTE | 2023-06-22 15:00 | P.PN ---
Progress Note - Text Progress Note Date: 06/22/23 Postoperative day #3 Patient is seen and examined today at bedside. The patient has some pain around the surgical site as expected. Pain is being controlled with medication. She has been able to get off the toilet by herself but has difficulty going from sitting to laying down by herself. She still requiring significant medications. She is voiding freely. She has not yet had a bowel movement. Physical Exam Afebrile with stable vital signs Abdomen is soft nontender. Chest has good excursion deep and space expiration The incision site is clean dry and intact. No erythema there is no purulence. Extremities have not had neurologic change from prior to surgery. She has sustained dorsiflexion plantarflexion EHL intact Calves and thighs were soft nontender without evidence of DVT. Assessment/Plan Postoperative day #3 status post minimally invasive decompression fusion L3-4 L4-5 L5-S1 for her spinal stenosis with disc degeneration lower extremity radiculopathy Patient is progressing as expected from the surgery. I would like her to move little bit more so that she is safer with her mobility before she can return home. She is not yet safe by herself for her transfers. She also has not yet had a bowel movement and would like her to be moving her bowels bit more before home. She thinks that she may be able to go home tomorrow or potentially Saturday. We will continue to increase the patient's mobilization with therapy. We will continue pain control with oral or IV medications. We'll continue to follow patient closely.
[2023-06-22 16:01] LABS: Glucose,Whole Blood 101 mg/dL (70-110)
--- NOTE | 2023-06-22 17:54 | P.PN ---
Subjective Progress Note Date: 06/22/23 58-year-old female with past medical history significant for CVA, TIA, memory impairment, hyperlipidemia, hypertension, hypothyroidism, ongoing nicotine dependence ,chronic low back pain, spinal stenosis L3-4, L4-5, L5-S1 with lower extremity radiculopathy, degenerative disc disease, herniated nucleus pulposus L3-4, L4-5, L5-S1, status post decompression fusion.tolerated procedure well. Denies history of diabetes mellitus. sitting up in chair, positive pain. Nausea and vomiting yesterday, subsided. Passing flatus. Denies chest pain, palpitations or shortness of breath. Smalls present. Denies chest pain, palpitations or shortness of breath. Maintaining O2 sats in the mid 90s on 2 L nasal cannula. Afebrile, WBC 13.7, hemoglobin 11.8, platelets 287. Bicarb 23.3, BUN 11.9, creatinine 1. Electrolytes within normal limits. Maintained on IV fluid hydration, blood pressures soft. Objective - Vital Signs Vital signs: Vital Signs Temp 98.3 F 06/22/23 07:45 Pulse 94 06/22/23 07:45 Resp 18 06/22/23 07:45 BP 119/75 06/22/23 07:45 Pulse Ox 92 L 06/22/23 07:45 FiO2 Intake & Output 06/21/23 06/22/23 06/22/23 18:59 06:59 18:59 Other: Voiding Method Toilet Toilet # Voids 3 2 - Exam Gen: well developed, female in NAD HEENT: NC/AT, mmm Neck: supple, no JVD or thyromegaly CV: regular rhythm, no murmur Lungs: normal effort, clear throughout Abd: soft, nontender, non distended Skin: warm and dry - Labs CBC & Chem 7: 06/21/23 06:18 06/21/23 06:18 Assessment and Plan Assessment: Chronic low back pain, spinal stenosis L3-4, L4-5, L5-S1 with lower extremity radiculopathy, degenerative disc disease, herniated nucleus pulposus L3-4, L4-5, L5-S1, status post decompression fusion. History of CVA-right MCA, TIA with memory impairment Hyperlipidemia Hypothyroidism Nicotine dependence Morbid obesity, BMI 41 Plan: Continue on current medication regimen ,monitoring and symptomatic treatment. Aggressive pulmonary toileting with incentive spirometer reinforced. Smoking sensation reinforced. PPI ordered for GI prophylaxis. Pain management and DVT prophylaxis as per orthopedic spine. PT/OT. Home meds have been reviewed and resumed accordingly. Hemoglobin A1c ordered.
[2023-06-22 22:03] LABS: Glucose,Whole Blood 97 mg/dL (70-110)
[2023-06-23 06:21] LABS: Glucose,Whole Blood 85 mg/dL (70-110)
[2023-06-23] MEDS: PANTOPRAZOLE 40 MG TABLET PO SCH (08:23)
--- NOTE | 2023-06-23 09:51 | P.DS ---
Providers Date of admission: 06/21/23 13:30 Attending physician: Jocy Crocker Consults: 06/19/23 16:08 Consult Physician Routine Consulting Provider: Oskar Contreras Consult Reason/Comments: Medical management Do you want consulting provider notified?: Yes Primary care physician: Iveth Melgar Hospital Course: The patient presented on the day of admission as per their operative note. She had severe issues with stenosis lower EXTR radiculopathy due to her spinal stenosis at multiple levels in her lumbar spine and underwent lumbar decompression and fusion L3-S1 as per operative note on Saturday. The patient is making slow but steady progress here in the hospital. She is tolerating her diet well but has not yet had a bowel movement. She is voiding freely. She still requiring some assistance to get up but feels she is making progress. Yesterday evening well having help to get turned she feels like she strained her left ring finger. Her finger has some constant swelling which has been chronic for her as she was not able to get her rings off even for surgery. They tried to remove her rings as she does have some swelling but does not coming off. She says she has bouts where she is not able to move her finger well but other times when it moves fine without pain. Physical Exam The incision site is clean dry and intact. There is no erythema no drainage. There is no purulence no evidence of infection. No active drainage. There is no erythema. Abdomen soft and nontender. Chest has good excursion with deep inspiration and expiration. The patient has active and passive range of motion intact at the upper and lower extremities. There is no acute change in neurologic status. She has sustained dorsiflexion plantarflexion EHL intact At her left hand her rings are intact. There are some swelling at her left ring finger. She is able to move her PIP and DIP put joints appropriately. Is nontender to palpation. There are times when she has pain over her PIP joint. It is not consistent. Hospital Course The patient has been making slow but steady progress postoperatively. They have completed the prophylactic antibiotics without any signs or symptoms of infecti on. The patient has been able to advance their diet, and is tolerating diet adequately. The pain was initially controlled with IV medications and is now controlled appropriately with oral medications. The patient has been able to increase their mobilization. She still has not yet had a bowel movement and if she is able to have a bowel movement today then perhaps she will feel more comfortable to go home today. If she is not quite steady on her feet and not safe on her own then she may need another night before she goes home. The patient has progressed appropriately. I think they are in good stable condition for discharge today if she is able to mobilize better and her bowels are moving better. Otherwise she may have to stay [address] they will be sent home with appropriate prescriptions. While she is here we will go ahead and get more imaging of her left hand to evaluate her left ring finger. I answered their questions to the best of my ability in a language that they can understand and they are agreeable with the plan. Patient Condition at Discharge: Fair Plan - Discharge Summary Discharge Rx Participant: No New Discharge Prescriptions: New Docusate [Colace] 100 mg PO BID PRN #14 capsule PRN Reason: Constipation HYDROcodone/APAP 5-325MG [Garrison 5-325] 1 tab PO Q4HR PRN #42 tab PRN Reason: Pain No Action Aspirin 325 mg PO DAILY Levothyroxine Sodium [Synthroid] 100 mcg PO QAM Atorvastatin [Lipitor] 40 mg PO QAM ramipriL [Ramipril] 2.5 mg PO QAM Ibuprofen [Motrin] 800 mg PO Q8H Fluticasone/Umeclidin/Vilanter [Trelegy Ellipta 100-62.5-25] 1 dose INHALATION DIRECTED Discharge Medication List Aspirin 325 mg PO DAILY 03/11/18 [History] Atorvastatin [Lipitor] 40 mg PO QAM 03/11/18 [History] Levothyroxine Sodium [Synthroid] 100 mcg PO QAM 03/11/18 [History] ramipriL [Ramipril] 2.5 mg PO QAM 03/11/18 [History] Fluticasone/Umeclidin/Vilanter [Trelegy Ellipta 100-62.5-25] 1 dose INHALATION DIRECTED 06/14/23 [History] Ibuprofen [Motrin] 800 mg PO Q8H 06/14/23 [History] Docusate [Colace] 100 mg PO BID PRN #14 capsule 06/23/23 [Rx] HYDROcodone/APAP 5-325MG [Garrison 5-325] 1 tab PO Q4HR PRN #42 tab 06/23/23 [Rx] Follow up Appointment(s)/Referral(s): [facility] [NON-STAFF] - As Needed (walker) [facility], [NON-STAFF] - As Needed
--- NOTE | 2023-06-23 11:03 | XR ---
EXAMINATION TYPE: XR hand limited LT DATE OF EXAM: 06/23/2023 COMPARISON: NONE HISTORY: 58-year-old female swelling, left ring finger strain, pain TECHNIQUE: 2 views FINDINGS: A ring is present obscuring the shaft of the fourth proximal phalanx. However, aside from t his limitation, no acute fracture, subluxation, dislocation is seen. Corticated density adjacent to t he ulnar styloid process suggesting sequela of old injury. Mild degenerative change first CMC joint. IMPRESSION: Sequela of old injury at the ulnar styloid process. There is osteopenia without acute osseous abnorma lity otherwise seen.
[2023-06-23 11:41] LABS: Glucose,Whole Blood 77 mg/dL (70-110)
[2023-06-23 16:49] LABS: Glucose,Whole Blood 93 mg/dL (70-110)
--- NOTE | 2023-06-23 19:12 | P.PN ---
Subjective Progress Note Date: 06/23/23 58-year-old female with past medical history significant for CVA, TIA, memory impairment, hyperlipidemia, hypertension, hypothyroidism, ongoing nicotine dependence ,chronic low back pain, spinal stenosis L3-4, L4-5, L5-S1 with lower extremity radiculopathy, degenerative disc disease, herniated nucleus pulposus L3-4, L4-5, L5-S1, status post decompression fusion.tolerated procedure well. Denies history of diabetes mellitus. sitting up in chair, positive pain. Nausea and vomiting yesterday, subsided. Passing flatus. Denies chest pain, palpitations or shortness of breath. Smalls present. Denies chest pain, palpitations or shortness of breath. Maintaining O2 sats in the mid 90s on 2 L nasal cannula. Afebrile, WBC 13.7, hemoglobin 11.8, platelets 287. Bicarb 23.3, BUN 11.9, creatinine 1. Electrolytes within normal limits. Maintained on IV fluid hydration, blood pressures soft. --Patient reports adequate pain control; has been ambulating and worked with PT; cleared for discharge by orthopedic service Objective - Vital Signs Vital signs: Vital Signs Temp 98.3 F 06/23/23 07:26 Pulse 78 06/23/23 07:26 Resp 18 06/23/23 07:26 BP 120/80 06/23/23 07:26 Pulse Ox 98 06/23/23 07:26 FiO2 Intake & Output 06/22/23 06/23/23 06/23/23 18:59 06:59 18:59 Other: Voiding Method Toilet # Voids 2 3 - Exam Gen: well developed, female in NAD HEENT: NC/AT, mmm Neck: supple, no JVD or thyromegaly CV: regular rhythm, no murmur Lungs: normal effort, clear throughout Abd: soft, nontender, non distended Skin: warm and dry - Labs CBC & Chem 7: 06/21/23 06:18 06/21/23 06:18 Assessment and Plan Assessment: Chronic low back pain, spinal stenosis L3-4, L4-5, L5-S1 with lower extremity radiculopathy, degenerative disc disease, herniated nucleus pulposus L3-4, L4-5, L5-S1, status post decompression fusion. History of CVA-right MCA, TIA with memory impairment Hyperlipidemia Hypothyroidism Nicotine dependence Morbid obesity, BMI 41 Plan: Continue on current medication regimen ,monitoring and symptomatic treatment. Aggressive pulmonary toileting with incentive spirometer reinforced. Smoking sensation reinforced. PPI ordered for GI prophylaxis. Pain management and DVT prophylaxis as per orthopedic spine. PT/OT. Home meds have been reviewed and resumed accordingly. Hemoglobin A1c ordered.
[2023-06-23 21:20] LABS: Glucose,Whole Blood 95 mg/dL (70-110)
[2023-06-24 05:55] LABS: Glucose,Whole Blood 103 mg/dL (70-110)
[2023-06-24] MEDS ORDERED: MAGNESIUM HYDROXIDE 2,400 MG/30 ML CUP PO PRN (08:26)
--- NOTE | 2023-06-24 08:34 | P.DS ---
Providers Date of admission: 06/21/23 13:30 Expected date of discharge: 06/24/23 Attending physician: Jocy Crocker Consults: 06/19/23 16:08 Consult Physician Routine Consulting Provider: Oskar Contreras Consult Reason/Comments: Medical management Do you want consulting provider notified?: Yes Primary care physician: Iveth Melgar - Discharge Diagnosis(es) (1) Lumbar degenerative disc disease Current Visit: Yes Status: Acute (2) Lumbar facet arthropathy Current Visit: Yes Status: Acute (3) Lumbar herniated disc Current Visit: Yes Status: Acute (4) Lumbar spinal stenosis Current Visit: Yes Status: Acute (5) Low back pain Current Visit: Yes Status: Acute (6) Radiculopathy with lower extremity symptoms Current Visit: Yes Status: Acute (7) Status post lumbar spinal fusion Current Visit: Yes Status: Acute (8) Hyperlipidemia Current Visit: Yes Status: Acute (9) Hypothyroidism Current Visit: Yes Status: Acute (10) Obesity Current Visit: Yes Status: Acute Hospital Course: This is a pleasant 58-year-old female who presented with L3-4, L4-5, and L5-S1 spinal stenosis and herniated nucleus pulposus with low back pain and lower extremity radiculopathy with lumbar degenerative disc disease and lumbar facet arthrosis who failed outpatient conservative therapy. She was admitted for an L3-4, L4-5, and L5-S1 minimally invasive posterior lateral decompression and fusion with transforaminal lumbar interbody fusion. She was progressing slowly initially but has had improvement over the weekend. She has been able to mobilize better with the assistance of a walker. She does have some back pain at the surgical sites but states it is better controlled. She is not currently complaining of any lower extremity weakness or radiculopathy bilaterally. She does feel she would be ready for discharge home today. Condition on day of discharge stable. Patient will be discharged home. Patient was cleared preoperatively for surgery by Dr. Oskar Contreras. Patient currently denies any nausea, vomiting, fever, or chills. Patient is eating and voiding freely without difficulty. Patient may shower without Optifoam dressing intact. Patient should refrain from driving until at least after their first follow-up appointment in the office. Patient does have a walker for home use and is encouraged to use this walker to aid in ambulation as needed. Patient should avoid excessive bending, lifting, and twisting; no lifting greater than 10 pounds. Patient has not had a bowel movement postoperatively but she is passing lots of gas. She is on Senokot-S. We will add other medications including milk of magnesia and MiraLAX to help facilitate a bowel movement. She is unable to have a bowel movement we will plan for Fleet enema. We will try to facilitate bowel movement prior to discharge this afternoon. MAPS was previously reviewed. An "Opiod Start Talking" Form has been signed and placed in the patient's chart. A prescription has been written for Patient's other medical diagnoses include lipidemia and hypothyroidism. Physical Exam on day of discharge: Patient is awake, alert, and oriented 3 Vital signs stable Good chest excursion with deep inspiration and expiration Abdomen soft nontender No signs or symptoms of DVT; no calf pain Extensor hallucis longus, plantarflexion, and dorsiflexion positive sustained bilateral lower extremities Resting's are removed over the lumbar spine and right iliac crest Surgical incision sites are clean, dry, and intact; no erythema, purulence, or signs of infection Patient is able to stand at the bedside independently without difficulty Procedures: L3-4, L4-5, and L5-S1 minimally invasive posterior lateral decompression and fusion with transforaminal lumbar interbody fusion Patient Condition at Discharge: Stable Plan - Discharge Summary Discharge Rx Participant: No New Discharge Prescriptions: New Docusate [Colace] 100 mg PO BID PRN #14 capsule PRN Reason: Constipation HYDROcodone/APAP 5-325MG [Stanley 5-325] 1 tab PO Q4HR PRN #42 tab PRN Reason: Pain Continue Aspirin 325 mg PO DAILY Levothyroxine Sodium [Synthroid] 100 mcg PO QAM Atorvastatin [Lipitor] 40 mg PO QAM ramipriL [Ramipril] 2.5 mg PO QAM Ibuprofen [Motrin] 800 mg PO Q8H Fluticasone/Umeclidin/Vilanter [Trelegy Ellipta 100-62.5-25] 1 dose INHALATION DIRECTED Discharge Medication List Aspirin 325 mg PO DAILY 03/11/18 [History] Atorvastatin [Lipitor] 40 mg PO QAM 03/11/18 [History] Levothyroxine Sodium [Synthroid] 100 mcg PO QAM 03/11/18 [History] ramipriL [Ramipril] 2.5 mg PO QAM 03/11/18 [History] Fluticasone/Umeclidin/Vilanter [Trelegy Ellipta 100-62.5-25] 1 dose INHALATION DIRECTED 06/14/23 [History] Ibuprofen [Motrin] 800 mg PO Q8H 06/14/23 [History] Docusate [Colace] 100 mg PO BID PRN #14 capsule 06/23/23 [Rx] HYDROcodone/APAP 5-325MG [Stanley 5-325] 1 tab PO Q4HR PRN #42 tab 06/23/23 [Rx] Follow up Appointment(s)/Referral(s): [facility] [NON-STAFF] - As Needed (walker) Javan Desai, KEN [PHYSICIAN [employer]] - 2 Weeks (Patient may follow-up with Javan Desai PA-C or Dr. Acosta Crocker at [facility] in 2-3 weeks following discharge. ) [facility], [NON-STAFF] - As Needed Activity/Diet/Wound Care/Special Instructions: 1. Patient may shower without Optifoam dressing intact 2. Patient urged to utilize a walker to aid in ambulation as needed 3. Patient should refrain from driving until at least after their first follow- up appointment in the office 4. Patient should avoid excessive bending, twisting, lifting; avoid overhead lifting; no lifting greater than 10 pounds 5. Take medications as prescribed 6. Patient should avoid anti-inflammatory medications over the next 6 weeks postoperatively 7. Do not soak in tub Discharge Disposition: HOME SELF-CARE
[2023-06-24 08:38] VITALS: BP 109/67; PULSE 87; RESP 17; TEMP 98.4
[2023-06-24] MEDS: NA PHOS,M-B/NA PHOS,DI-BA 133 ML ENEMA RECTAL ONE (09:00)
[2023-06-24] MEDS: polyethylene glycoL 3350 17 GM POWD.PACK PO SCH (09:00)
--- NOTE | 2023-06-24 10:50 | P.PN ---
Subjective Progress Note Date: 06/24/23 06/20/2023 this is a 58-year-old female with past medical history significant for CVA, TIA, memory impairment, hyperlipidemia, hypertension, hypothyroidism, ongoing nicotine dependence ,chronic low back pain, spinal stenosis L3-4, L4-5, L5-S1 with lower extremity radiculopathy, degenerative disc disease, herniated nucleus pulposus L3-4, L4-5, L5-S1, status post decompression fusion.tolerated procedure well. Denies history of diabetes mellitus. sitting up in chair, positive pain. Nausea and vomiting yesterday, subsided. Passing flatus. Denies chest pain, palpitations or shortness of breath. Smalls present. Denies chest pain, palpitations or shortness of breath. Maintaining O2 sats in the mid 90s on 2 L nasal cannula. Afebrile, WBC 13.7, hemoglobin 11.8, platelets 287. Bicarb 23.3, BUN 11.9, creatinine 1. Electrolytes within normal limits. Maintained on IV fluid hydration, blood pressures soft. 06/21/2023 Up to bathroom with two-person assist-reports positive pain but pain better controlled. Denies lower extremity numbness or tingling. denies chest pain, palpitations or shortness of breath. Denies cough or congestion. Denies chills, occasional sweats during the night. Afebrile, WBC 15.89, mild tachycardia, maintaining O2 sats in the low 90s on room air .on admission blood sugars mildly elevated at 123, hemoglobin A1c reflecting prediabetes with a level of 6.1. Denies nausea vomiting or diarrhea. Passing flatus. 06/24/2023 denies nausea, vomiting. Passing flatus, positive bowel movement this morning. Denies chills or sweats. Denies lightheadedness or dizziness or focal deficits. Reports pain better controlled. States she had been sitting up in chair. Denies chest pain, palpitations or shortness of breath. Maintaining O2 sats in the high 90s on room. Objective - Vital Signs Vital signs: Vital Signs Temp 98.4 F 06/24/23 07:11 Pulse 87 06/24/23 07:45 Resp 17 06/24/23 07:45 BP 109/67 06/24/23 07:11 Pulse Ox 98 06/24/23 07:11 FiO2 Intake & Output 06/23/23 06/24/23 06/24/23 18:59 06:59 18:59 Other: Voiding Method Toilet # Voids 3 3 # Bowel Movements 1 - Exam Gen: Alert and oriented x 3, laying in bed ,NAD HEENT: NC/AT, mmm Neck: supple, no JVD or thyromegaly CV: regular rhythm, no murmur,no edema Lungs: normal effort, clear throughout Abd: soft, nontender, non distended Skin: warm and dry - Labs CBC & Chem 7: 06/21/23 06:18 06/21/23 06:18 Assessment and Plan Assessment: Lumbar stenosis, spinal stenosis L3-4, L4-5, L5-S1 with lower extremity radiculopathy, degenerative disc disease, herniated nucleus pulposus L3-4, L4-5, L5-S1, status post decompression fusion. Pre-diabetes mellitus, hemoglobin A1c 6.1 Postoperative atelectasis Leukocytosis, reactive History of CVA-right MCA, TIA with memory impairment Hyperlipidemia Hypothyroidism Nicotine dependence, smoking sensation reinforced Morbid obesity, BMI 41 Plan: Continue on current medication regimen ,monitoring and symptomatic treatment. Discharge planning in progress for today as per orthopedic spine.Pain management. Continue with aggressive pulmonary toileting with incentive spirometer reinforced. Follow-up with PCP in 1 week. The impression and plan of care has been dictated as directed. : I performed a history and examination of this patient, discussed the same with the dictator. I agree with the dictator's note ,documented as a scribe. Any additional findings or plans will be noted.
== END 2023-06-24 11:52 | disposition home or self-care (01) ==
LOC: OR 09:36 → 4SSUR 16:03 → OR 06-21 13:30
PROVIDERS: ADMIT Orthopaedic Surgery Orthopaedic Surgery of the Spine; ATTEND Orthopaedic Surgery Orthopaedic Surgery of the Spine
DX: M48.061 Spinal stenosis, lumbar region without neurogenic claudication (principal); I35.0 Nonrheumatic aortic (valve) stenosis; M51.17 Intervertebral disc disorders with radiculopathy, lumbosacral region; I10 Essential (primary) hypertension; G89.29 Other chronic pain; E78.5 Hyperlipidemia, unspecified; E66.01 Morbid (severe) obesity due to excess calories; E03.9 Hypothyroidism, unspecified; D72.829 Elevated white blood cell count, unspecified; F17.200 Nicotine dependence, unspecified, uncomplicated; Z68.41 Body mass index [BMI] 40.0-44.9, adult; Z79.82 Long term (current) use of aspirin; Z79.890 Hormone replacement therapy; Z86.73 Personal history of transient ischemic attack (TIA), and cerebral infarction without residual deficits; Z79.899 Other long term (current) drug therapy
CPT/HCPCS: 96376 ×3; 96375; 96361; 96374; 97162; 80048 ×2; 85025 ×2; 83036; 72100; 73120; 22633; 22634 ×2; 20930; 20936; 63052; 63053; 22842; 22853; G0378 ×4; C1713 ×2; C1762; J2250; J0330; J1940; J2710; J0690 ×3; J2405; J2001; J3010; J1170; J2704; C9113 ×3; J2371 ×2; J0665

== ENCOUNTER → 2024-06-25 | Outpatient (CLI) | payer BC ==
--- NOTE | 2024-06-25 14:27 | MM ---
Reason for Exam: Screening (asymptomatic). Last mammogram was performed 6 year(s) and 9 month(s) ago. Patient History: Menarche at age 8. Patient has no children. Postmenopausal. Risk Values: Elvira 5 year model risk: 1.8%. NCI Lifetime model risk: 8.9%. Prior Study Comparison: 04/23/2008 Bilateral Screening Mammogram, [facility]. 07/08/2009 Bilateral Screening Mammogram, [facility]. 10/03/2017 Bilateral Screening Mammogram, [facility]. Tissue Density: There are scattered areas of fibroglandular density. Findings: Analyzed By CAD. Slightly more prominent but subcentimeter benign-appearing lymph nodes are redemonstrated. There is no suspicious group of microcalcifications or new suspicious mass in either breast. Overall Assessment: Negative, BI-RAD 1 Management: Screening Mammogram of both breasts in 1 year. . Patient should continue monthly self-breast exams. A clinical breast exam by your physician is recommended on an annual basis. This exam should not preclude additional follow-up of suspicious palpable abnormalities. Note on Elvira scores and lifetime risk: 1. A Elvira score greater than 3% is considered moderate risk. If this is the case, consider specialist referral to assess eligibility for a risk reducing agent. 2. If overall lifetime risk for the development of breast cancer is 20% or higher, the patient may qualify for future screening with alternating mammogram and breast MRI. [facility], , 06/25/2024 2:25 PM. Electronically signed and approved by: Mg Blankenship M.D.
== END | disposition home or self-care (01) ==
LOC: RADMAMWWP 13:39
PROVIDERS: ATTEND Family Medicine
DX: Z12.31 Encounter for screening mammogram for malignant neoplasm of breast (principal); R92.323 Mammographic fibroglandular density, bilateral breasts; Z78.0 Asymptomatic menopausal state
CPT/HCPCS: 77063; 77067